=== PATIENT | female | born 1990 | race Caucasian/White ===

== ENCOUNTER 2016-12-15 21:14 | Emergency (ER) | payer MEDICAID ==
--- NOTE | 2016-12-22 18:11 | ER ---
ADMIT: 12/15/2016 RM/LOC: ER [facility] MR#: [id number] [address] CATHERINE PARKER [address] [place] [address] Emergency Room Report SEX: F AGE: 26 : 1990 DATE: 12/15/2016 ADDENDUM: This patient comes into the ER because her friend was talking to her and noticed that she had these white patches on her tongue. The patient did not realize she had them until her friend mentioned it. She denies any pain. On physical exam, she does have what appears to be thrush on her tongue. She states she has never had this before. I wrote a prescription for nystatin and she is to follow up with her primary if it does not go away or continues to happen. FÁTIMA Rahman / Andreas Bansal MD / derick JOB #: [id number] CC: Andreas Bansal MD, Attending Physician Imtiaz Mayo MD, Family Physician
== END 2016-12-15 21:50 | disposition home or self-care (01) ==
LOC: ER 21:14
DX: B37.0 Candidal stomatitis (principal); J45.909 Unspecified asthma, uncomplicated; Z87.891 Personal history of nicotine dependence

== ENCOUNTER 2017-04-13 20:21 | Emergency (ER) | payer MEDICAID ==
--- NOTE | ~2017-04-13 | ER ---
ADMIT: 04/13/2017 RM/LOC: ER [facility] MR#: [id number] [address] CATHERINE PARKER [address] [place] [address] Emergency Room Report SEX: F AGE: 27 : 1990 DATE: 04/13/2017 ADDENDUM: A 27-year-old female, comes in with complaints of nausea, vomiting, and feeling lightheaded. She did initially not tell me she is , but later in her stay, does report that she is 4 months . She has no abdominal pain or cramping. No vaginal discharge or bleeding. She states that she vomited once prior to coming in this evening and felt a little lightheaded when she stood up. On examination, her physical exam was completely unremarkable. She was given meclizine here and Zofran. Her nausea has completely resolved, and she was not lightheaded or dizzy later in her exam. Orthostatics were done which were unremarkable. The patient is discharged home to follow up with her OB doctor which she states she already has an appointment and return to the ER for any worsening or concerning symptoms. She is to advance her diet as tolerated. DIAGNOSES: 1. Nausea and vomiting. 2. Lightheaded. Hany Ramos MD/ derick JOB #: [id number] CC: Hany Ramos MD, Attending Physician Allison Romero, Family Physician
== END 2017-04-13 23:23 | disposition home or self-care (01) ==
LOC: ER 20:21
DX: O21.9 Vomiting of pregnancy, unspecified (principal); R42 Dizziness and giddiness; O99.512 Diseases of the respiratory system complicating pregnancy, second trimester; J45.909 Unspecified asthma, uncomplicated; Z98.890 Other specified postprocedural states; Z79.899 Other long term (current) drug therapy